=== PATIENT | female | born 2000 | race African-American/Black ===

== ENCOUNTER 2022-05-26 16:39 | Emergency (ER) | payer SELFPAY | END 2022-05-26 18:50 | disposition home or self-care (01) | LOC: CSHERS 16:39 | DX: K08.89 Other specified disorders of teeth and supporting structures (principal) | CPT/HCPCS: 99282 ==

== ENCOUNTER 2022-06-11 15:14 | Emergency (ER) | payer SELFPAY ==
[2022-06-11 17:12] LABS: #Basophils 0.1 10x3/uL (0.0-0.2); #Eosinphils 0.5 10x3/uL (0.0-0.5); #Monocytes 0.9 10x3/uL (0.0-1.1); #Neutrophils 4.7 10x3/uL (1.5-8.4); %Basophils 0.6 % (0.0-2.0); %Eosinophils 5.6 % (0.0-6.0); %Lymphocytes 30.7 % (18.0-47.0); %Neutrophils 52.8 % (40.0-75.0); Hemoglobin 10.7 g/dL (12.0-15.5); Mean Corpuscular HGB CONC 31.2 g/dL (32.0-36.0); Mean Corpuscular Hemoglobin 24.4 pg (27.0-33.0); Mean Corpuscular Volume 78.1 fl (81.6-98.3); Mean Platelet Volume 9.4 fl (7.4-10.4); Platelet Count 378 10x3/uL (150-450); RBC Distribution Width 15.3 % (11.5-14.5); Red Blood Cell (RBC) Count 4.39 10x6/uL (3.90-5.03); White Blood Cell (WBC) Count 8.9 10x3/uL (3.5-10.5)
[2022-06-11 17:22] LABS: BHCG - Serum Negative (NEGATIVE); Pregs Control Background? CLEAR/WHITE (CLR/WHITE); Pregs Control Bar Appear? YES (CONTROL BAR)
[2022-06-11 17:44] LABS: Anion Gap 14 mmol/L (10-20); BUN (Urea Nitrogen) 8 mg/dL (7.0-18.7); Calc. Creatinine Clearance 0 mL/min (70-130); Calcium 8.8 mg/dL (7.8-10.44); Carbon Dioxide 24 mmol/L (22-29); Chloride 107 mmol/L (98-107); Estimated GFR 127; Glucose 103 mg/dL (70-105); Potassium 3.2 mmol/L (3.5-5.1); Sodium 142 mmol/L (136-145)
== END 2022-06-11 18:10 | disposition home or self-care (01) ==
LOC: CSHERS 15:14
DX: N94.6 Dysmenorrhea, unspecified (principal)
CPT/HCPCS: 36415; 80048; 84703; 85025; 99284

== ENCOUNTER 2024-10-10 00:03 | Emergency (ER) | payer SELFPAY ==
[2024-10-10] MEDS ORDERED: Amoxicillin/Potassium Clav 875 MG TAB ONE (00:51)
[2024-10-10] MEDS ORDERED: Ketorolac Tromethamine 30 MG (1 mL) VIAL ONE (00:51)
== END 2024-10-10 00:59 | disposition home or self-care (01) ==
LOC: CSHERS 00:03
DX: K08.89 Other specified disorders of teeth and supporting structures (principal); K04.7 Periapical abscess without sinus
CPT/HCPCS: 96372; 99282; J1885

== ENCOUNTER 2024-11-23 21:01 | Emergency (ER) | payer SELFPAY ==
[2024-11-23] MEDS ORDERED: HYDROcodone/Acetaminophen 5/325 mg Tablet ONE (21:20)
== END 2024-11-23 21:24 | disposition home or self-care (01) ==
LOC: CSHERS 21:01
DX: K08.89 Other specified disorders of teeth and supporting structures (principal)
CPT/HCPCS: 99282